=== PATIENT | female | born 1970 | race Caucasian/White ===

== ENCOUNTER → 2016-12-02 | Outpatient (CLI) | payer OTHER ==
[~2016-12-02] MED LIST: ALPR.5T PO; ANTIBIOTIC; BENA10TA2 PO; DICL100G13 TOP; ESTR1POW11 MC; ESTR1TAB27 PO; HYDR-33 PO; HYDR-3811 PO; LORA1TAB PO; LSNP10T PO; MELO7.5T PO; METH20TA34 PO; METO-270 PO; METO-272 PO; MTP50T PO; NEBI2.5T2 PO; ONDA4TAB8 PO; PRED5TAB PO; SERT25TA PO; [UNRECOGNIZED DRUG - OTHER]
--- NOTE | 2016-12-02 18:19 | Diagnostic Imaging Report ---
INDICATION: Cough COMPARISON STUDIES: Chest from 07/26/15. FINDINGS: Frontal and lateral views of the chest demonstrate the lungs to be clear. The heart, mediastinum, pulmonary vascularity and visualized bony thorax are normal. IMPRESSION: Negative chest. Dictated by: Dictated on workstation # [id number]
== END ==
LOC: RAD 17:39
PROVIDERS: ATTEND Family Medicine
DX: R05 Cough (principal)
CPT/HCPCS: 71020

== ENCOUNTER → 2016-12-10 | Outpatient (CLI) | payer OTHER ==
--- NOTE | 2016-12-10 14:44 | Diagnostic Imaging Report ---
Indication: Left forearm pain Exam: AP and lateral views of the left forearm were obtained. Findings: No fracture or acute bony abnormality is seen. Impression: Negative left forearm. Dictated by: Dictated on workstation # [id number]
== END ==
LOC: RAD 14:16
PROVIDERS: ATTEND Nurse Practitioner Family
DX: M79.632 Pain in left forearm (principal)
CPT/HCPCS: 73090